=== PATIENT | male | born 1945 | race Caucasian/White ===

== ENCOUNTER 2018-08-06 09:15 | Emergency (ER) | payer MEDICARE, MEDICAID ==
[2018-08-06 09:22] VITALS: BMI 22.3
[2018-08-06 09:24] VITALS: TEMP 98.4; O2SAT 98
--- NOTE | 2018-08-06 10:15 | C.PDOC ---
History Of Present Illness 73 y/o male with history of HTN presents to ED with c/o non radiating lower back pain for 3 days. Patient reports symptoms developed when he was sitting down and suddenly stood up. Patient took Tylenol for pain with minimal improvement and reports he is compliant with medications. Patient denies chest pain, abdominal pain, dysuria, hematuria, urinary frequency or bowel/bladder incontinence. Time Seen by Provider: 08/06/18 09:57 Chief Complaint (Nursing): Back Pain History Per: Patient History/Exam Limitations: no limitations Onset/Duration Of Symptoms: Days Current Symptoms Are (Timing): Still Present Quality Of Discomfort: "Pain" Past Medical History Reviewed: Historical Data, Nursing Documentation, Vital Signs Vital Signs: Last Vital Signs Temp 98.4 F 08/06/18 09:22 Pulse 102 H 08/06/18 10:47 Resp 20 08/06/18 10:47 BP 167/91 H 08/06/18 10:47 Pulse Ox 98 08/06/18 11:12 - Medical History PMH: Asthma, HTN, Hypercholesterolemia, Hypothyroidism Surgical History: Endoscopy - [facility] Procedures ENDOSC POLYPECTOMY OF LG INTEST (03/25/15) Family History: States: No Known Family Hx - Social History Hx Alcohol Use: No Hx Substance Use: No - Immunization History Hx Tetanus Toxoid Vaccination: No Hx Influenza Vaccination: No Hx Pneumococcal Vaccination: No Review Of Systems Constitutional: Negative for: Fever, Chills Gastrointestinal: Negative for: Nausea, Vomiting, Abdominal Pain Genitourinary: Negative for: Dysuria, Hematuria Musculoskeletal: Positive for: Back Pain Skin: Negative for: Rash, Bruising Physical Exam - Physical Exam Appears: Non-toxic, No Acute Distress Skin: Warm, Dry, No Rash Head: Atraumatic, Normacephalic Eye(s): bilateral: Normal Inspection Oral Mucosa: Moist Neck: Normal ROM, No Step Off Deformity, Supple Cardiovascular: Rhythm Regular (Tachycardic) Respiratory: Normal Breath Sounds, No Rales, No Rhonchi, No Wheezing Gastrointestinal/Abdominal: Soft, No Tenderness, No Guarding, No Rebound Back: No CVA Tenderness, Other (Paralumbar tenderness) Extremity: Bilateral: Atraumatic, Normal Color And Temperature, Normal ROM Neurological/Psych: Oriented x3, Normal Speech, Normal Motor, Normal Sensation Gait: Steady ED Course And Treatment - Laboratory Results Result Diagrams: 08/06/18 10:16 08/06/18 10:16 ECG: Interpreted By Me, Viewed By Me ECG Rhythm: Sinus Tachycardia Interpretation Of ECG: Sinus Tach @103 BPM, Left axis deviation Rate From EC (BPM) O2 Sat by Pulse Oximetry: 98 (RA) Pulse Ox Interpretation: Normal Medical Decision Making Medical Decision Making: Impression: Back pain Plan: * LS spine xray * Blood work * UA * Toradol * EKG Progress: Labs reviewed with no acute changes. EKG shows no ischemia. Xray shows degenerative changes and no acute abnormality. On reassessment, patient is resting comfortably, with improvement of back pain. Patient remains afebrile, with no bony tenderness, extremity numbness or weakness, chest pain or abdominal pain. Patient is ambulatory in the emergency department with no signs of discomfort. Patient was advised to follow up with physician/clinic in 1-2 days. 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 - Scribe Statement The provider has reviewed the documentation as recorded by the Salomeibarmando Cesar All medical record entries made by the Salomeibarmando were at my direction and personally dictated by me. I have reviewed the chart and agree that the record accurately reflects my personal performance of the history, physical exam, medical decision making, and the department course for this patient. I have also personally directed, reviewed, and agree with the discharge instructions and disposition.
[2018-08-06 10:19] LABS: BASO % 0.3 % (0.0-2.0); EOS # 0.2 K/uL (0.0-0.7); EOS % 1.7 % (0.0-4.0); HEMOGLOBIN 14.2 g/dL (12.0-18.0); LYMPH # 2.2 K/uL (1.0-4.3); LYMPH % 25.1 % (20.0-40.0); MEAN CELL VOLUME 82.1 fL (80.0-94.0); MEAN CORPUSCULAR HEMOGLOBIN 28.2 pg (27.0-31.0); MEAN CORPUSCULAR HGB CONC 34.3 g/dL (33.0-37.0); MEAN PLATELET VOLUME 6.9 fL (7.2-11.7); MONO # 0.4 K/uL (0.0-0.8); MONO % 4.7 % (0.0-10.0); NEUT % 68.2 % (50.0-75.0); RBC 5.05 Mil/uL (4.40-5.90); RED CELL DISTRIBUTION WIDTH 15.8 % (11.5-14.5); WHITE BLOOD COUNT 8.8 K/uL (4.8-10.8)
[2018-08-06 10:36] LABS: SQUAMOUS EPITHIAL < 1 /hpf (0-5); URINE BILIRUBIN NEGATIVE (NEGATIVE); URINE BLOOD NEGATIVE (NEGATIVE); URINE CLARITY Clear (Clear); URINE COLOR Yellow (YELLOW); URINE GLUCOSE (UA) NORMAL (Normal); URINE LEUKOCYTE ESTERASE NEG Leu/uL (Negative); URINE PROTEIN NEGATIVE (NEGATIVE); URINE UROBILINOGEN NORMAL mg/dL (0.2-1.0)
[2018-08-06 10:40] LABS: ALB/GLOB RATIO 1.5 (1.0-2.1); ALBUMIN 4.8 g/dL (3.5-5.0); ALT/SGPT 39 U/L (21-72); AST/SGOT 25 U/L (17-59); BLOOD UREA NITROGEN 17 mg/dL (9-20); GFR NON-AFRICAN AMERICAN > 60
--- NOTE | 2018-08-06 10:46 | RAD ---
Date of service: 08/06/2018 PROCEDURE: Radiographs of the Lumbar Spine. HISTORY: low back pain COMPARISON: No prior. FINDINGS: BONES: Normal alignment. No listhesis. No fracture. Anterior [id number] most notable. DISC SPACES: Narrowed at L5-S1 OTHER FINDINGS: Atherosclerotic vascular calcifications present. L4-5 and L5-S1 facet hypertrophic arthrosis. IMPRESSION: No fracture or subluxation. Senescent changes as above
[2018-08-06 10:48] VITALS: BP 167/91; PULSE 102; RESP 20
--- NOTE | 2018-08-08 07:05 | CARD ---
APPROVED REPORT Date of service: 08/06/2018 EKG Measurement Heart [id number] <Conclusion> Sinus tachycardia Left axis deviation Abnormal ECG
== END 2018-08-06 11:21 | disposition home or self-care (01) ==
LOC: C.ER 09:15
DX: M54.5 Low back pain (principal)
CPT/HCPCS: 72100; 80053; 81001; 85025; 96374; 99284; J1885

== ENCOUNTER 2019-04-16 07:28 | Emergency (ER) | payer MEDICARE, MEDICAID ==
[2019-04-16 07:28] VITALS: BMI 20.9
[2019-04-16 07:41] VITALS: O2SAT 97
--- NOTE | 2019-04-16 09:04 | C.PDOC ---
History Of Present Illness 73 y/o male presents to the ER complaining of lower back pain which has been present for the past 4 days. Patient states that he may have hurt his back because he exercises everyday. Patient reports that he has not taken any medications for the pain. Denies having fever,chills, nausea,vomiting, dsyuria, and hematuria. Time Seen by Provider: 04/16/19 07:40 Chief Complaint (Nursing): Back Pain Onset/Duration Of Symptoms: Days (4) Quality Of Discomfort: Aching Severity: Mild Associated Symptoms: None Past Medical History Reviewed: Historical Data, Nursing Documentation, Vital Signs Vital Signs: Last Vital Signs Temp 98.6 F 04/16/19 07:31 Pulse 88 04/16/19 07:31 Resp 18 04/16/19 07:31 BP 168/96 H 04/16/19 07:31 Pulse Ox 97 04/16/19 07:31 Primary Care Provider: Abimael Lin - Medical History PMH: Asthma, HTN, Hypercholesterolemia, Hypothyroidism Denies: Chronic Kidney Disease Surgical History: Endoscopy - [facility] Procedures ENDOSC POLYPECTOMY OF LG INTEST (03/25/15) Family History: States: No Known Family Hx - Social History Hx Alcohol Use: No Hx Substance Use: No - Immunization History Hx Tetanus Toxoid Vaccination: No Hx Influenza Vaccination: No Hx Pneumococcal Vaccination: No Review Of Systems Except As Marked, All Systems Reviewed And Found Negative. Constitutional: Negative for: Fever, Chills Gastrointestinal: Negative for: Nausea, Vomiting, Abdominal Pain Genitourinary: Negative for: Dysuria, Frequency, Incontinence, Hematuria Musculoskeletal: Positive for: Back Pain Physical Exam - Physical Exam Appears: Non-toxic, No Acute Distress Skin: Normal Color, Warm, Dry Head: Atraumatic, Normacephalic Eye(s): bilateral: Normal Inspection Neck: Normal ROM, Supple Chest: Symmetrical Cardiovascular: Rhythm Regular Respiratory: Normal Breath Sounds, No Rales, No Rhonchi, No Wheezing Gastrointestinal/Abdominal: Normal Exam, Soft, No Tenderness, No Guarding, No Rebound Back: Paraspinal Tenderness (right sided paralumbar tenderness) Neurological/Psych: Oriented x3, Normal Speech, Normal Motor, Normal Sensation Gait: Steady ED Course And Treatment O2 Sat by Pulse Oximetry: 97 (RA) Pulse Ox Interpretation: Normal Progress Note: Patient treated with Toradol IM. On re-evaluation feeling better. ambulating with steady gait Reassessment Condition: Improved Disposition Counseled Patient/Family Regarding: Diagnosis, Need For Followup, Rx Given - Disposition Referrals: Abimael Lin MD [Staff Provider] - Disposition: HOME/ ROUTINE Disposition Time: 09:10 Condition: IMPROVED Additional Instructions: Follow up with your PMD for further evaluation Return to ED if any increase symptoms Prescriptions: Naproxen [Naprosyn] 1 tab PO BID PRN #25 tab PRN Reason: Pain Instructions: Low Back Pain (DC) Forms: [employer] (Croatian) - POA Present On Arrival: None - Clinical Impression Clinical Impression: Low back strain, Low back pain - 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 - Scribe Statement The provider has reviewed the documentation as recorded by the Salomeibe Darlin Diallo Provider Attestation All medical record entries made by the Scribe were at my direction and pers onally dictated by me. I have reviewed the chart and agree that the record accurately reflects my personal performance of the history, physical exam, medical decision making, and the department course for this patient. I have also personally directed, reviewed, and agree with the discharge instructions and disposition.
[2019-04-16 09:12] VITALS: BP 170/93; PULSE 87; RESP 20; TEMP 98.1
== END 2019-04-16 09:12 | disposition home or self-care (01) ==
LOC: C.ER 07:28
DX: S39.012A Strain of muscle, fascia and tendon of lower back, initial encounter (principal); X58.XXXA Exposure to other specified factors, initial encounter
CPT/HCPCS: 96372; 99283; J1885